=== PATIENT | female | born 1935 | race Caucasian/White ===

== ENCOUNTER 2020-11-13 18:06 | Inpatient (IN) | payer MEDICARE, BC ==
[~2020-11-13] VITALS: Ht 165.1 cm; Wt 93.5 kg
[~2020-11-13 18:06] MED LIST: AUGMENTIN 875-1 EACH PO; BETAPACE80 MG PO; COLCHICINE 0.60.6 MG PO; DEMADEX 10 MG T10 MG PO; DEMADEX20 MG PO; ELIQUIS5 MG PO; FISH OIL 1,0001 EACH PO; HYGROTON TAB 2525 MG PO; IPRAT-ALBUT 0.5-3 ML NEB; JANUMET 50-5001 EACH PO; KLOR-CON 1010 MEQ PO; LIPITOR TAB 1010 MG PO; LIPITOR TAB 2020 MG PO; LOPRESSOR100 MG PO; LOTENSIN20 MG PO; NORVASC 5 MG TAB5 MG PO; VITAMIN D32000 UNI1 PO; ZYLOPRIM 100 M100 MG PO
[2020-11-13 19:14] LABS: HEMOGLOBIN 10.4 gm/dl (12.3-15.3); RED BLOOD COUNT 3.7 M/UL (4.00-5.10); WHITE BLOOD COUNT 10.8 K/UL (4.5-11.0)
[2020-11-13 19:37] LABS: BUN/CREATININE RATIO 24 (0-10)
[2020-11-13] MEDS ORDERED: PRESERVISION A1 EAC1 PO (21:03)
[2020-11-14 01:08] LABS: BORDETELLA PARAPERTUSSIS Not Detected (Not Detectd); BORDETELLA PERTUSSIS Not Detected (Not Detectd); CHLAMYDIA PNEUMONIAE Not Detected (Not Detectd); CORONAVIRUS HKU1 Not Detected (Not Detectd); CORONAVIRUS NL63 Not Detected (Not Detectd); CORONAVIRUS OC43 Not Detected (Not Detectd); CORONOAVIRUS 229E Not Detected (Not Detectd); HUMAN METAPNEUMOVIRUS Not Detected (Not Detectd); HUMAN RHINOVIRUS/ENTEROVIRUS Not Detected (Not Detectd); INFLUENZA A Not Detected (Not Detectd); INFLUENZA B Not Detected (Not Detectd); MYCOPLASMA PNEUMONIAE Not Detected (Not Detectd); PARAINFLUENZA VIRUS 1 Not Detected (Not Detectd); PARAINFLUENZA VIRUS 2 Not Detected (Not Detectd); PARAINFLUENZA VIRUS 3 Not Detected (Not Detectd); PARAINFLUENZA VIRUS 4 Not Detected (Not Detectd); RESPIRATORY SYNCYTIAL VIRUS Not Detected (Not Detectd); SARS-CoV-2 NOT DETECTED (Not Detectd)
[2020-11-14 02:55] LABS: HEMOGLOBIN 10.3 gm/dl (12.3-15.3); RED BLOOD COUNT 3.75 M/UL (4.00-5.10); WHITE BLOOD COUNT 8.9 K/UL (4.5-11.0)
[2020-11-15] MEDS ORDERED: AMIODARONE HCL200 MG PO ×2 (11:58)
[2020-11-15] MEDS ORDERED: LASIX40 MG PO (11:58)
[2020-11-15] MEDS ORDERED: [UNRECOGNIZED DRUG - OTHER] INH (12:02)
--- NOTE | 2020-11-15 12:24 | NUR ---
PATIENT NOTED TI DESAT TO 87 ON ROOM AIR. CM AWARE.
--- NOTE | 2020-11-15 13:09 | NUR ---
INSTRUCTED ON IMPORTANCE OF SAFETY IN THE HOME 02 CONTINUOUS. VERBALIZED UNDERSTANDING. INSTRUCTED TAKE LAXIS 3 DAYS HOLD TEROSIMIDE WHILE TAKING. TAKE LOADING DOSE OF AMIODARONE ORDERED. AFTER COMPLETING THIS SCRIPT START DOSE OF 200MG DAILY. VERBALIZED UNDERSTANDING. CRISTY MORENO RN.
== END 2020-11-15 14:03 | disposition home or self-care (01) | DRG 293 ==
LOC: ER1 18:06 → CDU 20:34 → M/S 21:51 → CDU 21:51 → M/S 23:08
PROVIDERS: Internal Medicine; Physician Assistant; ADMIT Family Medicine
DX: I11.0 Hypertensive heart disease with heart failure (principal); I50.43 Acute on chronic combined systolic (congestive) and diastolic (congestive) heart failure; I48.0 Paroxysmal atrial fibrillation; I25.10 Atherosclerotic heart disease of native coronary artery without angina pectoris; I34.0 Nonrheumatic mitral (valve) insufficiency; I27.20 Pulmonary hypertension, unspecified; K21.9 Gastro-esophageal reflux disease without esophagitis; M19.90 Unspecified osteoarthritis, unspecified site; M10.9 Gout, unspecified; I49.5 Sick sinus syndrome; E78.5 Hyperlipidemia, unspecified; E11.9 Type 2 diabetes mellitus without complications; Z95.0 Presence of cardiac pacemaker; Z95.5 Presence of coronary angioplasty implant and graft
CPT/HCPCS: 0240U; 71045; 71046; 80048; 80053; 81001; 82550; 82553; 82962; 83605; 83735; 83874; 83880; 84439; 84443; 84484; 85025; 86140; 87040; 87633; 93005; 94760; 96374; 99285; J0456; J0696; J1940; J7030

== ENCOUNTER 2020-12-19 11:10 | Inpatient (IN) | payer MEDICARE, BC ==
[~2020-12-19 11:10] MED LIST changes: +AMIODARONE HCL200 MG PO; +LASIX40 MG PO; +PRESERVISION A1 EAC1 PO; +[UNRECOGNIZED DRUG - OTHER] INH
[2020-12-19 11:59] LABS: HEMOGLOBIN 10.5 gm/dl (12.3-15.3); RED BLOOD COUNT 3.72 M/UL (4.00-5.10); WHITE BLOOD COUNT 12.1 K/UL (4.5-11.0)
[2020-12-19 12:44] LABS: BUN/CREATININE RATIO 27 (0-10)
[2020-12-19] MEDS ORDERED: AMIODARONE HCL200 MG PO ×2 (15:39→15:40)
[2020-12-19] MEDS ORDERED: LASIX20 MG PO (15:40)
[2020-12-20 03:09] LABS: HEMOGLOBIN 8.7 gm/dl (12.3-15.3)
[2020-12-20 03:14] LABS: RED BLOOD COUNT 3.12 M/UL (4.00-5.10); WHITE BLOOD COUNT 7.5 K/UL (4.5-11.0)
[2020-12-21 03:25] LABS: HEMOGLOBIN 9.7 gm/dl (12.3-15.3); RED BLOOD COUNT 3.41 M/UL (4.00-5.10); WHITE BLOOD COUNT 7.1 K/UL (4.5-11.0)
[2020-12-21] MEDS ORDERED: [UNRECOGNIZED DRUG - OTHER] INH (10:26)
[2020-12-21] MEDS ORDERED: LOPRESSOR 25 MG25 MG PO ×2 (16:35→16:53)
[2020-12-21] MEDS ORDERED: AMIODARONE HCL200 MG PO (16:38)
== END 2020-12-21 16:57 | disposition home or self-care (01) | DRG 291 ==
LOC: ER1 11:10 → PROG CARE 15:04 → CDU 15:04 → PROG CARE 16:27
PROVIDERS: Emergency Medicine; Physician Assistant Medical; ADMIT Family Medicine
DX: I13.0 Hypertensive heart and chronic kidney disease with heart failure and stage 1 through stage 4 chronic kidney disease, or unspecified chronic kidney disease (principal); J96.21 Acute and chronic respiratory failure with hypoxia; I50.43 Acute on chronic combined systolic (congestive) and diastolic (congestive) heart failure; N17.9 Acute kidney failure, unspecified; Z68.41 Body mass index [BMI] 40.0-44.9, adult; Z20.822 Contact with and (suspected) exposure to COVID-19; I25.10 Atherosclerotic heart disease of native coronary artery without angina pectoris; K21.9 Gastro-esophageal reflux disease without esophagitis; I45.81 Long QT syndrome; E78.5 Hyperlipidemia, unspecified; M10.9 Gout, unspecified; E66.9 Obesity, unspecified; F41.9 Anxiety disorder, unspecified; I27.20 Pulmonary hypertension, unspecified; E11.22 Type 2 diabetes mellitus with diabetic chronic kidney disease; I34.0 Nonrheumatic mitral (valve) insufficiency; I49.5 Sick sinus syndrome; N18.30 Chronic kidney disease, stage 3 unspecified; I48.0 Paroxysmal atrial fibrillation; Z79.01 Long term (current) use of anticoagulants; Z95.0 Presence of cardiac pacemaker; Z95.5 Presence of coronary angioplasty implant and graft; Z90.710 Acquired absence of both cervix and uterus; Z98.42 Cataract extraction status, left eye; Z98.41 Cataract extraction status, right eye; Z82.49 Family history of ischemic heart disease and other diseases of the circulatory system; Z88.6 Allergy status to analgesic agent; Z79.82 Long term (current) use of aspirin; Z99.81 Dependence on supplemental oxygen
CPT/HCPCS: 0240U; 36415; 36600; 71045; 80048; 80053; 82550; 82553; 82803; 82962; 83735; 83874; 83880; 84439; 84443; 84484; 85025; 85027; 93005; 96374; 96375; 99285; J1940; J2405

== ENCOUNTER 2020-12-24 04:28 | Inpatient (IN) | payer MEDICARE, BC ==
[~2020-12-24] VITALS: Ht 165.1 cm; Wt 90.7 kg
[~2020-12-24 04:28] MED LIST changes: +LASIX20 MG PO; +LOPRESSOR 25 MG25 MG PO
[2020-12-24 04:56] LABS: HEMOGLOBIN 10.3 gm/dl (12.3-15.3); RED BLOOD COUNT 3.79 M/UL (4.00-5.10); WHITE BLOOD COUNT 12.7 K/UL (4.5-11.0)
[2020-12-24 05:16] LABS: BUN/CREATININE RATIO 26 (0-10)
[2020-12-24] MEDS ORDERED: AMIODARONE HCL200 MG PO (16:37)
[2020-12-25 03:58] LABS: RED BLOOD COUNT 3.33 M/UL (4.00-5.10); WHITE BLOOD COUNT 7.6 K/UL (4.5-11.0)
[2020-12-26 04:28] LABS: HEMOGLOBIN 9.3 gm/dl (12.3-15.3); RED BLOOD COUNT 3.28 M/UL (4.00-5.10); WHITE BLOOD COUNT 7.8 K/UL (4.5-11.0)
[2020-12-28 03:09] LABS: HEMOGLOBIN 9.1 gm/dl (12.3-15.3); RED BLOOD COUNT 3.29 M/UL (4.00-5.10); WHITE BLOOD COUNT 9.2 K/UL (4.5-11.0)
[2020-12-28] MEDS ORDERED: AMIODARONE HCL200 MG PO (10:05)
[2020-12-28] MEDS ORDERED: ALBUTEROL1.25 MG/3 INH (10:05)
[2020-12-28] MEDS ORDERED: NEBULIZER UNIT INH (10:05)
== END 2020-12-28 11:50 | disposition home or self-care (01) | DRG 291 ==
LOC: ER1 04:28 → CDU 05:37 → PROG CARE 05:37
PROVIDERS: Family Medicine; Internal Medicine; ADMIT Internal Medicine
PROC: 5A09457 Assistance with Respiratory Ventilation, 24-96 Consecutive Hours, Continuous Positive Airway Pressure (ICD-10-PCS; principal; 2020-12-24)
PROC: 5A2204Z Restoration of Cardiac Rhythm, Single (ICD-10-PCS; 2020-12-27)
DX: I13.0 Hypertensive heart and chronic kidney disease with heart failure and stage 1 through stage 4 chronic kidney disease, or unspecified chronic kidney disease (principal); I50.33 Acute on chronic diastolic (congestive) heart failure; J96.21 Acute and chronic respiratory failure with hypoxia; J44.1 Chronic obstructive pulmonary disease with (acute) exacerbation; N17.9 Acute kidney failure, unspecified; I25.10 Atherosclerotic heart disease of native coronary artery without angina pectoris; Z20.822 Contact with and (suspected) exposure to COVID-19; I48.0 Paroxysmal atrial fibrillation; I49.5 Sick sinus syndrome; I34.0 Nonrheumatic mitral (valve) insufficiency; I27.20 Pulmonary hypertension, unspecified; E78.5 Hyperlipidemia, unspecified; E11.22 Type 2 diabetes mellitus with diabetic chronic kidney disease; M10.9 Gout, unspecified; F41.9 Anxiety disorder, unspecified; N18.30 Chronic kidney disease, stage 3 unspecified; M19.90 Unspecified osteoarthritis, unspecified site; Z79.4 Long term (current) use of insulin; Z90.710 Acquired absence of both cervix and uterus; Z95.0 Presence of cardiac pacemaker; Z98.49 Cataract extraction status, unspecified eye; Z82.49 Family history of ischemic heart disease and other diseases of the circulatory system; Z88.6 Allergy status to analgesic agent
CPT/HCPCS: 36415; 36600; 71045; 71250; 80048; 80053; 80202; 82550; 82553; 82803; 82962; 83605; 83874; 83880; 84484; 85025; 85027; 85610; 86140; 87040; 93005; 94660; 94760; 96374; 99285; J1200; J1940; J2250; J2270; J2543; J3010; J3370; J7070; U0002

== ENCOUNTER 2021-02-05 07:37 | Inpatient (IN) | payer MEDICARE, BC ==
[~2021-02-05] VITALS: Ht 165.1 cm; Wt 90.7 kg
[~2021-02-05 07:37] MED LIST changes: +ALBUTEROL1.25 MG/3 INH; +NEBULIZER UNIT INH
[2021-02-05 08:45] LABS: HEMOGLOBIN 10.3 gm/dl (12.3-15.3); RED BLOOD COUNT 3.56 M/UL (4.00-5.10)
[2021-02-05 09:24] LABS: BUN/CREATININE RATIO 21 (0-10)
[2021-02-06 05:01] LABS: HEMOGLOBIN 9.5 gm/dl (12.3-15.3); RED BLOOD COUNT 3.3 M/UL (4.00-5.10); WHITE BLOOD COUNT 8.4 K/UL (4.5-11.0)
--- NOTE | 2021-02-06 12:06 | NUR ---
PT RECEIVING SECOND DOSE OF CORVERT. PT WENT IN TO VFIB/VTACH AND BECAME UNRESPONSIVE. NO PULSE PALPATED. CODE CALLED. CPR STARTED. PT INTUBATED AND SENT TO ICU. SEE CODE SHEET FOR DETAILS.
--- NOTE | 2021-02-06 13:37 | NUR ---
1115 INTUBATED AND CODE ON PCU.
[2021-02-07 04:55] LABS: HEMOGLOBIN 8.3 gm/dl (12.3-15.3); WHITE BLOOD COUNT 8.4 K/UL (4.5-11.0)
[2021-02-07 05:01] LABS: RED BLOOD COUNT 2.88 M/UL (4.00-5.10)
[2021-02-08 05:17] LABS: HEMOGLOBIN 8.5 gm/dl (12.3-15.3); RED BLOOD COUNT 2.9 M/UL (4.00-5.10); WHITE BLOOD COUNT 8.4 K/UL (4.5-11.0)
[2021-02-09 04:09] LABS: HEMOGLOBIN 7.6 gm/dl (12.3-15.3); RED BLOOD COUNT 2.63 M/UL (4.00-5.10); WHITE BLOOD COUNT 7.3 K/UL (4.5-11.0)
[2021-02-09 11:15] LABS: CREATININE, URINE 116.2 mg/dL (Not Estab.)
--- NOTE | 2021-02-09 15:30 | NUR ---
Dobbhoff placed per order. Pt tolerated well. x-ray to confirm placement in progress.
[2021-02-10 05:28] LABS: WHITE BLOOD COUNT 8.6 K/UL (4.5-11.0)
[2021-02-10 05:42] LABS: HEMOGLOBIN 10.2 gm/dl (12.3-15.3); RED BLOOD COUNT 3.53 M/UL (4.00-5.10)
[2021-02-11 05:37] LABS: HEMOGLOBIN 10.4 gm/dl (12.3-15.3); RED BLOOD COUNT 3.56 M/UL (4.00-5.10); WHITE BLOOD COUNT 7.6 K/UL (4.5-11.0)
[2021-02-12 05:39] LABS: HEMOGLOBIN 10.6 gm/dl (12.3-15.3); RED BLOOD COUNT 3.62 M/UL (4.00-5.10)
[2021-02-13 03:26] LABS: HEMOGLOBIN 10.4 gm/dl (12.3-15.3); RED BLOOD COUNT 3.68 M/UL (4.00-5.10)
[2021-02-14 05:36] LABS: RED BLOOD COUNT 3.45 M/UL (4.00-5.10); WHITE BLOOD COUNT 6.7 K/UL (4.5-11.0)
--- NOTE | 2021-02-14 05:43 | NUR ---
02/13 2142 PT FOUND WITH NG TUBE PULLED OUT AND TUBE FEED SPILLED IN BED. WHILE CLEANING PT UP, PT STATED "I DIDNT FEEL LIKE I NEEDED IT." AOX3. DR SALTER AWARE, NO ORDERS RECEIVED TO REPLACE NG TUBE.
[2021-02-14 08:23] LABS: BODY FLUID SOURCE PLEURAL; RBC (AUTOMATED) 12300 (0-100000); WBC (AUTOMATED) 611 (0-500)
[2021-02-14 08:24] LABS: MONONUCLEAR CELLS 64 (75-100); POLYMORPHONUCLEAR % 36 (0-25)
[2021-02-14 15:58] LABS: LDH, BODY FLUID 233 U/L; TOTAL PROTEIN, BODY FLUID 3.1 gm/dL
[2021-02-15 05:25] LABS: HEMOGLOBIN 10.4 gm/dl (12.3-15.3); RED BLOOD COUNT 3.56 M/UL (4.00-5.10); WHITE BLOOD COUNT 7.1 K/UL (4.5-11.0)
[2021-02-16 02:32] LABS: HEMOGLOBIN 9.9 gm/dl (12.3-15.3); RED BLOOD COUNT 3.4 M/UL (4.00-5.10); WHITE BLOOD COUNT 6.8 K/UL (4.5-11.0)
[2021-02-17] MEDS ORDERED: FERROUS SULFAT325 M2 PO (10:12)
[2021-02-17] MEDS ORDERED: ESCITALOPRAM OX10 MG PO (10:12)
[2021-02-17] MEDS ORDERED: LEVALBUTER1.25 MG/3 NEB (10:12)
[2021-02-17] MEDS ORDERED: ASPIRIN EC81 MG PO (10:12)
[2021-02-17] MEDS ORDERED: KLONOPIN TAB 00.5 MG PO (10:12)
[2021-02-17] MEDS ORDERED: BUMETANIDE1 MG PO (10:12)
[2021-02-17] MEDS ORDERED: PROTONIX 40 MG40 M1 PO (10:12)
[2021-02-17] MEDS ORDERED: BUDESONIDE0.5 MG/2 M NEB (10:12)
== END 2021-02-17 18:30 | DRG 208 ==
LOC: ER1 07:37 → PROG CARE 10:06 → CDU 10:06 → CCU 10:06 → PROG CARE 02-06 03:09 → CCU 02-06 12:08 → PROG CARE 02-15 13:11
PROVIDERS: Emergency Medicine; Internal Medicine; Internal Medicine Nephrology; Internal Medicine Pulmonary Disease; Physician Assistant; ADMIT Family Medicine
PROC: 5A1945Z Respiratory Ventilation, 24-96 Consecutive Hours (ICD-10-PCS; principal; 2021-02-06)
PROC: 02HV33Z Insertion of Infusion Device into Superior Vena Cava, Percutaneous Approach (ICD-10-PCS; 2021-02-06)
PROC: B548ZZA Ultrasonography of Superior Vena Cava, Guidance (ICD-10-PCS; 2021-02-06)
PROC: 0BH17EZ Insertion of Endotracheal Airway into Trachea, Via Natural or Artificial Opening (ICD-10-PCS; 2021-02-06)
PROC: B24BZZZ Ultrasonography of Heart with Aorta (ICD-10-PCS; 2021-02-09)
PROC: 30233N1 Transfusion of Nonautologous Red Blood Cells into Peripheral Vein, Percutaneous Approach (ICD-10-PCS; 2021-02-09)
PROC: 5A09457 Assistance with Respiratory Ventilation, 24-96 Consecutive Hours, Continuous Positive Airway Pressure (ICD-10-PCS; 2021-02-09)
PROC: 0W9B3ZZ Drainage of Left Pleural Cavity, Percutaneous Approach (ICD-10-PCS; 2021-02-14)
DX: J96.21 Acute and chronic respiratory failure with hypoxia (principal); J81.0 Acute pulmonary edema; J18.9 Pneumonia, unspecified organism; I46.9 Cardiac arrest, cause unspecified; G93.41 Metabolic encephalopathy; N17.0 Acute kidney failure with tubular necrosis; I50.43 Acute on chronic combined systolic (congestive) and diastolic (congestive) heart failure; I13.0 Hypertensive heart and chronic kidney disease with heart failure and stage 1 through stage 4 chronic kidney disease, or unspecified chronic kidney disease; N18.4 Chronic kidney disease, stage 4 (severe); I47.2 Ventricular tachycardia; J44.0 Chronic obstructive pulmonary disease with (acute) lower respiratory infection; J44.1 Chronic obstructive pulmonary disease with (acute) exacerbation; J90 Pleural effusion, not elsewhere classified; E66.2 Morbid (severe) obesity with alveolar hypoventilation; I48.19 Other persistent atrial fibrillation; Z20.822 Contact with and (suspected) exposure to COVID-19; E11.22 Type 2 diabetes mellitus with diabetic chronic kidney disease; F41.9 Anxiety disorder, unspecified; D50.9 Iron deficiency anemia, unspecified; J98.6 Disorders of diaphragm; E11.65 Type 2 diabetes mellitus with hyperglycemia; I49.5 Sick sinus syndrome; I27.20 Pulmonary hypertension, unspecified; I34.0 Nonrheumatic mitral (valve) insufficiency; E78.5 Hyperlipidemia, unspecified; R07.89 Other chest pain; I25.10 Atherosclerotic heart disease of native coronary artery without angina pectoris; Z90.710 Acquired absence of both cervix and uterus; Z98.49 Cataract extraction status, unspecified eye; Z95.0 Presence of cardiac pacemaker; Z79.01 Long term (current) use of anticoagulants; Z79.84 Long term (current) use of oral hypoglycemic drugs; Z79.899 Other long term (current) drug therapy; Z95.5 Presence of coronary angioplasty implant and graft; Z99.81 Dependence on supplemental oxygen; Z88.5 Allergy status to narcotic agent; Z82.49 Family history of ischemic heart disease and other diseases of the circulatory system; Z83.3 Family history of diabetes mellitus; Z80.8 Family history of malignant neoplasm of other organs or systems; Z68.33 Body mass index [BMI] 33.0-33.9, adult
CPT/HCPCS: ECHO; 31500; 36415; 36430; 36600; 71045; 74018; 80048; 80053; 80202; 81001; 82043; 82140; 82550; 82553; 82570; 82728; 82803; 82962; 83540; 83550; 83605; 83615; 83735; 83874; 83880; 84100; 84156; 84157; 84484; 85025; 85027; 85730; 86140; 86850; 86900; 86901; 86920; 87040; 87070; 89051; 92526; 92610; 93005; 93306; 94002; 94003; 94640; 94660; 94664; 94760; 97110-GP-CQ; 97162; 97166; 97530-GP-CQ; 99285; A6212; C1729; J0171; J0461; J0692; J1120; J1170; J1205; J1644; J1742; J1756; J1940; J2250; J2270; J3370; J3475; J7030; J7040; J7070; P9016; P9047; U0002